=== PATIENT | female | born 1940 | race Two or more races ===

== ENCOUNTER 2019-02-18 10:00 | Outpatient (CLI) | payer OTHER | END 2019-02-18 10:15 | disposition home or self-care (01) | LOC: NUCLEAR 10:00 | DX: M81.0 Age-related osteoporosis without current pathological fracture (principal) ==

== ENCOUNTER 2021-05-28 14:18 | Outpatient (CLI) | payer OTHER | END 2021-05-28 14:30 | disposition home or self-care (01) | LOC: NUCLEAR 14:18 | PROVIDERS: ATTEND Internal Medicine Rheumatology | DX: M81.0 Age-related osteoporosis without current pathological fracture (principal) ==

== ENCOUNTER 2022-10-21 12:48 | Outpatient (CLI) | payer OTHER | END 2022-10-21 12:56 | disposition home or self-care (01) | LOC: RAD 12:48 | PROVIDERS: ATTEND Internal Medicine Pulmonary Disease | DX: R06.02 Shortness of breath (principal); J44.1 Chronic obstructive pulmonary disease with (acute) exacerbation ==

== ENCOUNTER → 2023-07-06 | Outpatient (CLI) | payer OTHER | END | disposition home or self-care (01) | LOC: NUCLEAR 12:58 | PROVIDERS: ATTEND Internal Medicine Rheumatology | DX: M81.8 Other osteoporosis without current pathological fracture (principal) ==

== ENCOUNTER 2023-07-13 17:55 | Emergency (ER) | payer OTHER ==
[~2023-07-13] VITALS: Ht 170.2 cm; Wt 59.0 kg
[2023-07-13] MEDS ORDERED: SULFAZINE EC500 MG PO (18:45)
[2023-07-13] MEDS ORDERED: CRESTOR10 MG PO (18:46)
== END 2023-07-14 01:52 | disposition home or self-care (01) ==
LOC: ER 17:56
DX: M25.552 Pain in left hip (principal)
CPT/HCPCS: 73502; 96372; 99284; J1885

== ENCOUNTER 2023-07-23 13:28 | Outpatient (CLI) | payer OTHER ==
[~2023-07-23 13:28] MED LIST: CRESTOR10 MG PO; SULFAZINE EC500 MG PO
== END 2023-07-23 13:40 | disposition home or self-care (01) ==
LOC: TOM 13:28
DX: S32.502A Unspecified fracture of left pubis, initial encounter for closed fracture (principal)

== ENCOUNTER → 2024-07-20 10:44 | Outpatient (CLI) | payer OTHER | END | disposition home or self-care (01) | LOC: NUCLEAR 10:44 | DX: I67.89 Other cerebrovascular disease (principal); I65.23 Occlusion and stenosis of bilateral carotid arteries ==

== ENCOUNTER 2024-07-21 12:28 | Outpatient (CLI) | payer OTHER | END 2024-07-21 12:32 | disposition home or self-care (01) | LOC: RAD 12:28 | PROVIDERS: ATTEND Internal Medicine Pulmonary Disease | DX: R06.02 Shortness of breath (principal) ==

== ENCOUNTER 2025-08-02 13:01 | Outpatient (CLI) | payer OTHER | END 2025-08-02 13:03 | disposition home or self-care (01) | LOC: NUCLEAR 13:01 | PROVIDERS: ATTEND Internal Medicine Rheumatology | DX: M81.0 Age-related osteoporosis without current pathological fracture (principal) ==